=== PATIENT | female | born 1985 | race Caucasian/White ===

== ENCOUNTER 2018-12-23 11:51 | Outpatient (CLI) | payer MEDICAID ==
[~2018-12-23] VITALS: Ht 160 cm; Wt 85.2 kg
[2018-12-23 12:03] VITALS: BP 125/79; Ht 160 cm; Wt 85.2 kg
[2018-12-23] MEDS ORDERED: CEFTRIAXONE 2 GM INJ IM ONE (15:30)
--- NOTE | 2018-12-23 17:48 | PN ---
Triage Information Date/Time Reason for visit: Patient seen in her primary office for visit today, blood pressure was elevated. She referred to triage for further evaluation Weeks of Gestation 38 weeks and 2 days /Para G1 Diabetes: none Hypertention: none Objective Vital Signs Date Temp Pulse Resp B/P (MAP) Pulse Ox O2 O2 Flow FiO2 Time Delivery Rate 12/23/18 98.0 125/79 12:03 (94) Heart Rate: 140's Contractions: None Results/Medications Result Diagram: 12/23/18 1005 12/23/18 1005 Results 24 hrs Laboratory Tests Test 12/23/18 10:05 12/23/18 12:05 White Blood Count 7.3 Red Blood Count 4.57 Hemoglobin 11.3 L Hematocrit 35.4 L Mean Corpuscular Volume 77.5 L Mean Corpuscular Hemoglobin 24.7 L Mean Corpuscular Hemoglobin Concent 31.9 L Red Cell Distribution Width 14.9 H Platelet Count 351 Mean Platelet Volume 10.7 H Immature Granulocytes % 0.500 H Neutrophils % 73.8 Lymphocytes % 17.2 Monocytes % 5.4 Eosinophils % 2.3 Basophils % 0.8 Nucleated Red Blood Cells % 0.0 Immature Granulocytes # 0.040 H Neutrophils # 5.4 Lymphocytes # 1.3 Monocytes # 0.4 Eosinophils # 0.2 Basophils # 0.1 Nucleated Red Blood Cells # 0.0 Prothrombin Time 11.5 L Prothrombin Time Ratio 0.9 INR International Normalized Ratio 0.83 Activated Partial Thromboplast Time 27.3 Fibrinogen 643.0 H Sodium Level 138 Potassium Level 4.5 Chloride Level 110 Carbon Dioxide Level 19 L Anion Gap 9 Blood Urea Nitrogen 6 L Creatinine 0.63 Est Glomerular Filtrat Rate mL/min > 60 Glucose Level 77 Uric Acid 5.5 Calcium Level 8.9 Total Bilirubin 0.3 Direct Bilirubin 0.00 Indirect Bilirubin 0.3 Aspartate Amino Transf (AST/SGOT) 27 Alanine Aminotransferase (ALT/SGPT) 18 Alkaline Phosphatase 323 H Total Protein 7.4 Albumin 3.6 Globulin 3.80 H Albumin/Globulin Ratio 0.94 Urine Color YELLOW Urine Clarity CLOUDY A Urine pH 7.0 Urine Specific [place] 1.008 Urine Ketones NEGATIVE Urine Nitrite NEGATIVE Urine Bilirubin NEGATIVE Urine Urobilinogen NEGATIVE Urine Leukocyte Esterase 3+ H Urine Microscopic RBC 12 H Urine Microscopic WBC 37 H Urine Squamous Epithelial Cells FEW Urine Amorphous Crystals FEW A Urine Bacteria FEW A Urine Hemoglobin 1+ H Urine Glucose NEGATIVE Urine Total Protein NEGATIVE Imaging Results There is a single live intrauterine gestation. Cardiac activity is present with 134 beats per minute. There is a vertex presentation. The placenta is anterior. There is no evidence of placental abruption. There is a normal amount of amniotic fluid with an ROSA = 11.6 cm. Biophysical profile: movement 2/2 tone 2/2. breathing 2/2 ROSA 2/2 Total 05/06 RPTAT: AA . IMPRESSION: Normal biophysical profile. Disposition: Discharge Assessment/Plan 33 years old 1 with single intrauterine at 38 weeks and 2 days with a KADI of 01/04/2019 was seen for visit in her primary OB office, her blood pressure was elevated x1. Patient referred for further evaluation in triage. She states baby has been active. She denies nausea, vomiting, shortnes s of breath, chest pain, abdominal pain, headache, visual changes, vaginal bleeding or LOF. -FHR: No sign of metabolic acidosis- Category I -Contractions: None -All blood pressure in triage were normal -ultrasound performed as noted above -CBC, CMP and uric acid within normal limits -Symptoms and sign of labor, preeclampsia, kick count discussed with patient, she voiced understanding. All of her questions answered. -Patient was discharged home in stable condition with the appropriate discharge instructions provided. I would like patient to have close follow-up with her [facility] physician or outpatient clinic in 1-2 days for checking blood pressure or return to triage for worsening symptoms or any other urgent concerns. 2) UTI: Urinalysis with WBC 27, 2+ leukocyte esterase. 3 cc Rocephin 1 g IM given. Microbead 100 mg every 12 hours for 7days given. Recommend follow-up with her primary OB in 2 days to review urine culture results RONNIE HUSAIN Dec 23, 2018 17:48
== END 2018-12-23 16:25 | disposition home or self-care (01) ==
LOC: OBT 11:51 → L-D 11:51 → OBT 16:25
PROVIDERS: ATTEND Obstetrics & Gynecology
DX: O13.3 Gestational [pregnancy-induced] hypertension without significant proteinuria, third trimester (principal); Z3A.38 38 weeks gestation of pregnancy
CPT/HCPCS: 76818; 80053; 81001; 84560; 85025; 85384; 85610; 85730; 96372; J0696; Z7500; G0463

== ENCOUNTER 2018-12-27 11:23 | Inpatient (IN) | payer MEDICAID ==
[~2018-12-27] VITALS: Ht 160 cm; Wt 85.4 kg
[2018-12-27 11:33] VITALS: Ht 160 cm; Wt 85.4 kg
--- NOTE | 2018-12-27 12:06 | TRIAGE ---
OB Triage Datetime Report Generated by CPN: 12/27/2018 12:06 Datetime: 12/27/2018 11:59 Maternal Assessment Level of Consciousness: Fully Conscious DTR's/Clonus: DTRs 1+ Headache: Denies Blurred Vision: No Nausea/Vomiting: Denies RUQ Epigastric Pain: Denies Facial Edema: None Labor Evaluation Frequency: 5-6 Monitor Mode: External Duration (sec)2399: 50-70 Quality: Mild Pattern: Normal: <= 5 Contractions in 10 Minutes Resting Tone [place]: Relaxed Heart Rate FHR Baseline Rate: 140 Monitor Mode: External US Variability: Moderate 6-25 bpm Accelerations: 15X15 Decelerations: None Category: Category I Pain Assessment Pain Scale: 8 Pain Presence: Intermittent Pain Type: Cramping Pain Location: Back Pain Goal: 3 Membrane Status: Intact Datetime: 12/27/2018 11:55 Stage of : OB Triage Datetime: 12/27/2018 11:30 Assessment Type: Triage Maternal Assessment Level of Consciousness: Fully Conscious DTR's/Clonus: DTRs 2+; No Clonus Headache: Denies Blurred Vision: No Respiratory Effort: Unlabored; Regular Rhythm; Equal Expansion Breath Sounds, Left: Clear and Equal Breath Sounds, Right: Clear and Equal Nausea/Vomiting: Denies RUQ Epigastric Pain: Denies Lower Extremities Edema: None Degree: None Upper Extremities Edema: None Degree: None Facial Edema: None Fall Risk Assessment History of Falling: (0) No Secondary Diagnosis: (0) No Ambulatory Aid: (0) Bedrest/Nurse Assist IV Therapy: (0) No Gait: (0) Normal/Bedrest/Immobile Mental Status: (0) Oriented to Own Ability Fall Score: 0 Fall Risk Score Definition: No Risk: No action required Datetime: 12/27/2018 11:29 Vaginal Exam Dilatation (cms): 1.0 Effacement (%): 90 Station: -2 Exam By: PRABHJOT WRIGHT Vaginal Bleeding: None Cervix, Consistency: Soft Cervix, Position: Midposition Presentation 'A': Cephalic Datetime: 12/27/2018 11:20 Time of Arrival: 12/27/2018 11:20 EGA: 38.6 Arrived By: Ambulatory Arrived From: Home Chief Complaint: PT CAME IN C/O UC'S Movement: Present Contractions: Irregular Time Contractions Began: 12/27/2018 06:30 Contractions: 5-10 MIN Rupture of Membranes: Denies Vaginal Bleeding: None Vaginal Discharge: Denies Recent Sexual Intercouse: Denies Abdominal Trauma: Not Applicable Patient Complaints: Contractions Additional Patient Complaints: NONE Time Provider Notified: 12/27/2018 11:55 Provider Notified: REICHE FOR ESHAGHIAN Initial Plan: MONITOR, VE, BPP Datetime: 12/23/2018 15:51 Stage of : OB Triage Heart Rate FHR Baseline Rate: 135 Monitor Mode: External US Variability: Moderate 6-25 bpm Accelerations: 15X15 Decelerations: None Category: Category I Datetime: 12/23/2018 14:16 Stage of : OB Triage Labor Evaluation Frequency: 0 Monitor Mode: External Pattern: Normal: <= 5 Contractions in 10 Minutes Resting Tone [place]: Relaxed Heart Rate FHR Baseline Rate: 135 Monitor Mode: External US Variability: Moderate 6-25 bpm Accelerations: 15X15 Decelerations: None Category: Category I Datetime: 12/23/2018 13:00 Labor Evaluation Frequency: OCCAS Monitor Mode: External Duration (sec)2399: 50-60 Quality: Mild Pattern: Normal: <= 5 Contractions in 10 Minutes Resting Tone [place]: Relaxed Heart Rate FHR Baseline Rate: 135 Monitor Mode: External US FHR Baseline Changes: No Baseline Change Variability: Moderate 6-25 bpm Accelerations: 15X15 Decelerations: None Category: Category I Datetime: 12/23/2018 12:36 Comments: US AT BEDSIDE Datetime: 12/23/2018 12:07 Stage of : OB Triage Assessment Type: Triage Maternal Assessment Level of Consciousness: Fully Conscious DTR's/Clonus: DTRs 2+; No Clonus Headache: Denies Blurred Vision: No Respiratory Effort: Unlabored; Regular Rhythm; Equal Expansion Breath Sounds, Left: Clear and Equal Breath Sounds, Right: Clear and Equal Nausea/Vomiting: Denies RUQ Epigastric Pain: Denies Lower Extremities Edema: None Degree: None Upper Extremities Edema: None Degree: None Facial Edema: None Temperature Route: Oral Fall Risk Assessment History of Falling: (0) No Secondary Diagnosis: (0) No Ambulatory Aid: (0) Bedrest/Nurse Assist IV Therapy: (0) No Gait: (0) Normal/Bedrest/Immobile Mental Status: (0) Oriented to Own Ability Fall Score: 0 Fall Risk Score Definition: No Risk: No action required Monitor Mode: External Monitor Mode: External US Pain Assessment Pain Scale: 0 Pain Presence: None/Denies Datetime: 12/23/2018 12:06 Time of Arrival: 08/25/2019 11:49 EGA: 73.2 Arrived By: Ambulatory Arrived From: Dr. Estrada Chief Complaint: SENT FROM [facility] FOR ELEVATED B/P Movement: Present Contractions: Denies/Absent Rupture of Membranes: Denies Vaginal Bleeding: None Vaginal Discharge: Denies Recent Sexual Intercouse: Denies Abdominal Trauma: Not Applicable Patient Complaints: Other Time Provider Notified: 12/23/2018 14:02 Provider Notified: WENDY
[2018-12-27] MEDS ORDERED: LACTATED RINGER'S 1,000 ML IV PRN (12:25)
[2018-12-27] MEDS ORDERED: CARBOPROST 250 MCG INJ IM PRN (12:30)
[2018-12-27] MEDS ORDERED: OXYTOCIN 30 UNITS/LR 500 ML IV SCH ×3 (12:30→18:30)
[2018-12-27] MEDS ORDERED: MISOPROSTOL 200 MCG TAB PR PRN (12:30)
[2018-12-27] MEDS ORDERED: OXYTOCIN 30 UNITS/LR 500 ML IV PRN (12:30)
[2018-12-27] MEDS ORDERED: LIDOCAINE 1% (MPF) 30 ML INJ INJ PRN (12:30)
[2018-12-27] MEDS ORDERED: METHYLERGONOVINE 0.2 MG INJ IM PRN (12:30)
[2018-12-27] MEDS: LACTATED RINGER'S 1,000 ML IV SCH ×2 (12:33→20:43)
[2018-12-28] VITALS (8 sets, daily range): BP systolic 115–149; BP diastolic 56–91; PULSE 87–116; RESP 18
--- NOTE | 2018-12-28 00:40 | PREAC ---
Date/Time of Note Date/Time of Note DATE: 12/28/18 TIME: 00:39 Anesthesia Eval and Record Evaluation Time Pre-Procedure Interview DATE: 12/28/18 TIME: 00:39 Age 33 Sex female NPO: 8 hrs Preoperative diagnosis Planned procedure labor epidural Past Medical History Past Medical History: None Surgery & Anesthesia Issues No known issue Meds Anticoagulation: No Beta Neelima within 24 hr: No Reason Beta Neelima not given: Pt. not on B-Neelima No Active Prescriptions or Reported Meds Current Medications Lactated Ringer's 1,000 ml @ 125 mls/hr Q8H IV Last administered on 12/27/18at 20:43; Admin Dose 125 MLS/HR; Start 12/27/18 at 12:25 Lidocaine (Xylocaine 1% (Mpf)) 30 ml ONCE PRN INJ .EPISIOTOMY; Start 12/27/18 at 12:30 Oxytocin/Lactated Ringer's 500 ml @ 500 mls/hr ONCE POST IV ; Start 12/27/18 at 12:30 Oxytocin/Lactated Ringer's 500 ml @ 125 mls/hr POST IV ; Start 12/27/18 at 12:30 Lactated Ringer's 1,000 ml @ 2,000 mls/hr Q30M PRN IV .ANESTHESIA Last administered on 12/28/18at 00:29; Admin Dose 2,000 MLS/HR; Start 12/27/18 at 12:25 Oxytocin/Lactated Ringer's 500 ml @ 0 mls/hr ONCE PRN IV .VAGINAL BLEEDING; Start 12/27/18 at 12:30 Methylergonovine Maleate (Methergine) 0.2 mg ONCE PRN IM .VAGINAL BLEEDING; Start 12/27/18 at 12:30 Carboprost Tromethamine (Hemabate) 250 mcg ONCE PRN IM .VAGINAL BLEEDING; Start 12/27/18 at 12:30 Misoprostol (Cytotec) 1,000 mcg ONCE PRN MI .VAGINAL BLEEDING; Start 12/27/18 at 12:30 Oxytocin/Lactated Ringer's 500 ml @ 0 mls/hr Q0M IV Last administered on 12/27/18at 18:20; Admin Dose 1 MLS/HR; Start 12/27/18 at 18:30 Meds reviewed: Yes Allergies Coded Allergies: No Known Allergies (Verified Allergy, Unknown, 12/27/18) Allergies Reviewed: Yes Labs/Studies Labs Reviewed: Reviewed by anesthesiologist Result Diagram: 12/27/18 1225 Laboratory Tests 12/27/18 12:25 Blood Bank Test 12/27/18 12:25 Antibody Screen NEGATIVE Blood Type O POSITIVE Rh Immune Globulin Candidate NO test: Positive Pre-procedure Exam Airway: Adequate mouth opening, Adequate thyromental dist Mallampati: Mallampati II Teeth: Normal Lung: Normal Heart: Normal ASA Physical Status ASA physical status: 2 Emergency: None Planned Anesthetic Neuraxial: Epidural Pre-operative Attestations Prior to commencing anesthesia and surgery, the patient was re-evaluated, there was verification of: *The patient's identity *The results of appropriate recent lab work and preoperative vital signs *The above evaluation not changing prior to induction *Anesthetic plan, risk benefits, alternative and complications discussed with patient/family; questions answered; patient/family understands, accepts and wishes to proceed. GERALD WIGGINS Dec 28, 2018 00:40
[2018-12-28] MEDS ORDERED: FENTAnyl 2MCG/ML-ROPIV 0.2% 100 ML ONE (00:59)
[2018-12-28] MEDS ORDERED: DIPHENHYDRAMINE 50 MG INJ IV PRN (01:00)
[2018-12-28] MEDS ORDERED: ROPIVACAINE 0.2% 100 ML ONE (01:00)
[2018-12-28] MEDS ORDERED: HYDROmorphONE 0.5 MG/0.5 ML SYG IV PRN ×2 (01:00)
[2018-12-28] MEDS ORDERED: KETOROLAC 30 MG INJ IV PRN (01:00)
[2018-12-28] MEDS ORDERED: ONDANSETRON 4 MG INJ IV PRN ×2 (01:00→22:00)
[2018-12-28] MEDS ORDERED: NALOXONE (0.4 MG/ML) INJ IV PRN (01:00)
--- NOTE | 2018-12-28 01:09 | PAC ---
Date/Time of Note Date/Time of Note DATE: 12/28/18 TIME: 01:09 Post-Anesthesia Notes Post-Anesthesia Note Activity: WNL Respiratory function: WNL Cardiovascular function: WNL Mental status: Baseline Pain reasonably controlled: Yes Hydration appropriate: Yes Nausea/Vomiting absent: Yes GERALD WIGGINS Dec 28, 2018 01:09
[2018-12-28] MEDS: LACTATED RINGER'S 1,000 ML IV SCH ×2 (01:37→09:42)
[2018-12-28] MEDS: FENTAnyl 2MCG/ML-ROPIV 0.2% 100 ML BAG EPI SCH ×2 (11:10→20:03)
--- NOTE | 2018-12-28 12:29 | QN ---
Documentation Comment patient seen and evaluated no complaints vs stable afebrile ab gravid nt extremity no edema nt ve deffered fhr cat 1 toco regular a/ iup at term in labor p/ anticipate vaginal delivery JOSHUA CAMACHO MD Dec 28, 2018 12:29
--- NOTE | 2018-12-28 12:29 | QN ---
Documentation Comment patient seen and evaluated no complaints vs stable afebrile ab gravid nt extremity no edema nt ve 5/80/-2 srom fhr cat 1 toco regular a/ iup at term in labor p/ anticipate vaginal delivery JOSHUA CAMACHO MD Dec 28, 2018 12:29
[2018-12-28] MEDS ORDERED: SODIUM CHLORIDE 0.9% 1L IRRIG IRR PRN (12:30)
[2018-12-28] MEDS ORDERED: DEXTROSE 5%-LR 1,000 ML IV PRN (12:30)
--- NOTE | 2018-12-28 12:30 | QN ---
Documentation Comment patient seen and evaluated no complaints vs stable afebrile ab gravid nt extremity no edema nt ve 2-3/70/-3 intact fhr cat 1 toco regular a/ iup at term in labor currently on Pitocin for augmentation p/ anticipate vaginal delivery JOSHUA CAMACHO MD Dec 28, 2018 12:30
[2018-12-28] MEDS ORDERED: SOD CHLORIDE 0.9% 1,000 ML IV PRN (16:00)
[2018-12-28] MEDS ORDERED: AMPICILLIN 2 GM/NS (PMX) 100 ML ONE (20:16)
[2018-12-28] MEDS ORDERED: AMPICILLIN 2 GM/NS (PMX) 100 ML IVPB ONE (20:30)
[2018-12-28] MEDS: ACETAMINOPHEN 325 MG TAB PO PRN (20:42)
[2018-12-28] MEDS ORDERED: OXYTOCIN 30 UNITS/LR 500 ML IV SCH (21:31)
--- NOTE | 2018-12-28 21:31 | LDN ---
Date/Time of Note Date/Time of Note DATE: 12/28/18 TIME: 21:29 Delivery Summary Weeks of Gestation 38 Placenta Delivered: Spontaneously Meconium: none Episiotomy: No Perineal laceration: 1 Laceration repair: 1st degree vaginal and perineal lacertion repair with 2-0 and 3-0 chromic Anesthesia type: Epidural Estimated blood loss: 350 Sponge & Needle done & correct: Yes All needle counts correct: Yes Any foreign bodies felt in the: No Infant Delivery Information Sex Sex: female Apgars 1 Minute: 7 5 Minute: 9 Suctioning Nose & mouth suctioned at [place]elope: No Delee suction performed: No Umbilical Cord Umbilical cord with: 3 Vessels Cord presentations: nuchal cord Nuchal cord present X: 1 Cord Blood was obtained: Yes JOSHUA CAMACHO MD Dec 28, 2018 21:31
[2018-12-28] MEDS ORDERED: OXYTOCIN 30 UNITS/LR 500 ML IV PRN (22:00)
[2018-12-28] MEDS ORDERED: NACL 0.9% 3 ML SYG IV SCH (22:00)
[2018-12-28] MEDS ORDERED: ACETAMINOPHEN 325 MG TAB PO PRN (22:00)
[2018-12-28] MEDS ORDERED: MISOPROSTOL 200 MCG TAB PR PRN (22:00)
[2018-12-28] MEDS ORDERED: BENZOCAINE 20% 56 ML SPRAY TOP PRN (22:00)
[2018-12-28] MEDS ORDERED: CARBOPROST 250 MCG INJ IM PRN (22:00)
[2018-12-28] MEDS ORDERED: DIBUCAINE 1% 30 GM OINT TOP PRN (22:00)
[2018-12-28] MEDS ORDERED: WITCH HAZEL/GLYCERIN PAD PR PRN (22:00)
[2018-12-28] MEDS ORDERED: SENNA/DOCUSATE NA (8.6MG/50MG) TAB PO PRN (22:00)
[2018-12-28] MEDS ORDERED: METHYLERGONOVINE 0.2 MG INJ IM PRN (22:00)
[2018-12-28] MEDS ORDERED: LANOLIN HPA 1 PKT TOP PRN (22:00)
[2018-12-28] MEDS ORDERED: OXYCODONE/ASPIRIN (4.88/325) TAB PO PRN ×2 (22:00)
[2018-12-29] MEDS: ACETAMINOPHEN 325 MG TAB PO PRN (00:21)
[2018-12-29 02:00] VITALS: BP 118/58; PULSE 74; RESP 20
[2018-12-29] MEDS: IBUPROFEN 600 MG TAB PO SCH ×5 (02:15→23:37)
[2018-12-29] MEDS ORDERED: MISOPROSTOL 200 MCG TAB PR PRN (02:30)
[2018-12-29] MEDS ORDERED: OXYTOCIN 30 UNITS/LR 500 ML IV PRN (02:30)
[2018-12-29] MEDS ORDERED: CARBOPROST 250 MCG INJ IM PRN (02:30)
[2018-12-29] MEDS ORDERED: OXYTOCIN 30 UNITS/LR 500 ML IV SCH ×2 (02:30)
[2018-12-29] MEDS ORDERED: LIDOCAINE 1% (MPF) 30 ML INJ INJ PRN (02:30)
[2018-12-29] MEDS ORDERED: METHYLERGONOVINE 0.2 MG INJ IM PRN (02:30)
[2018-12-29 04:00] VITALS: BP 105/68; PULSE 72; RESP 18
[2018-12-29 08:25] VITALS: BP 102/63; PULSE 69; RESP 18
[2018-12-29] MEDS: SENNA/DOCUSATE NA (8.6MG/50MG) TAB PO SCH ×2 (12:05→21:13)
[2018-12-29 16:00] VITALS: BP 104/57; PULSE 66; RESP 18
[2018-12-29 19:40] VITALS: BP 107/62; PULSE 67; RESP 19
--- NOTE | 2018-12-29 19:40 | PD.PPDC ---
[employer] HAND Discharge Instruction Condition [id number] Patient Condition: Gedsw3e Good Diet [id number] Diet: Soulw7d Resume Regular Diet Activity/Restrictions [id number] Activity: Uchzy3n Normal Activity May Shower Lfdep9Vm Restrictions: Njshm1w No Exercising No Lifting No Driving No Sexual Activity Nothing in the Vagina No [place] No Tampons, douche Follow-up Follow-up with Physician: 3, Week/Weeks Return to clinic for Cafoj5Eq SOCIOLOGY INSTRUCTOR Instructions: Kptdk4h Fever greater than 101 Chills Worsening abdominal pain Excessive Vaginal Bleeding More than 2 pads per hour Unable to tolerate diet Naroe1Lm OB Instructions: Bdfcx8u Breast Tenderness Depression Blurried Vision Headache [id number] Surgical Instructions: [id number] Incisional Drainage Incisional Redness JOSHUA CAMACHO MD Dec 29, 2018 19:40
--- NOTE | 2018-12-29 19:42 | DS ---
Date/Time of Note Date/Time of Note DATE: 12/29/18 TIME: 19:41 Obstetrical Discharge Record Final Diagnosis Final Diagnosis: Term delivered Vaginal Delivery Obstetrical Delivery: Spontaneous, Laceration, Repaired Condition on Discharge Physical Assessment Last Vitals: stable afebrile Voiding: Yes Bowel Movement: Yes Breast: Soft, non-tender, Filling Fundus: Firm Abdomen and Incision: soft nt Calf Tenderness: No Patient Condition: Fair JOSHUA CAMACHO MD Dec 29, 2018 19:42
[2018-12-29] MEDS: LACTATED RINGER'S 1,000 ML IV SCH ×4 (20:25→20:56)
[2018-12-30] MEDS: LACTATED RINGER'S 1,000 ML IV SCH ×2 (02:25→03:06)
[2018-12-30 03:40] VITALS: BP 105/59; PULSE 69; RESP 18
[2018-12-30] MEDS: IBUPROFEN 600 MG TAB PO SCH ×2 (05:45→12:27)
--- NOTE | 2018-12-30 07:50 | PREOPHP ---
DATE OF ADMISSION: 12/27/2018 HISTORY OF PRESENT ILLNESS: The patient is a 33-year-old 1, para 0, EDC 01/04/2019 intrauter ine at 39 weeks gestational age, admitted for in labor. She denies any vaginal bleeding or discharge. Her care took place at [facility]. PAST MEDICAL HISTORY: None. MEDICATIONS: vitamins. PAST SURGICAL HISTORY: None. OBSTETRIC HISTORY: Primigravida. GYNECOLOGIC HISTORY: 12, regular 3 to 4 days. She denies any sexually transmitted disease. Sexuall y active with 1 partner. SOCIAL HISTORY: She denies any smoking, drugs or alcohol. FAMILY HISTORY: None. REVIEW OF SYSTEMS: All within normal except history of present illness. PHYSICAL EXAMINATION: HEENT: Within normal. LUNGS: CTA bilateral. CARDIOVASCULAR: S1, S2, regular rate, regular rhythm. ABDOMEN: Gravid, nontender. Negative CVA bilateral. EXTREMITIES: Negative for calf tenderness. PELVIC: heart tracing category 1, toco; regular contractions. ASSESSMENT: Intrauterine at term in labor. PLAN: Anticipated vaginal delivery. Dictated By: JOSHUA GAMA/DEBBIE Conf#: [id number] DID#: [id number] CC: JOSHUA CAMACHO MD;*EndCC*
[2018-12-30 08:30] VITALS: BP 103/64; PULSE 59; RESP 16
[2018-12-30] MEDS: SENNA/DOCUSATE NA (8.6MG/50MG) TAB PO SCH (09:37)
--- NOTE | 2018-12-31 13:34 | DELSUM ---
Delivery Summary A-C Datetime Report Generated by CPN: 12/31/2018 13:34 DELIVERY PERSONNEL Instrument Room Technician: Fistell, Tom MATERNAL INFORMATION Delivery Anesthesia: Epidural Medications in Delivery: PITOCIN 30 UNITS IN 500 ML L/R INJ IV BOLUS AFTER DELIVERY Delivery QBL (ml): 350 Placenta Cultured: No Maternal Complications: Maternal Fever; Prolong Labor >20Hrs LABOR SUMMARY EDC: 01/04/2019 00:00 No. Babies in Womb: 1 Attempted: No Labor Anesthesia: Epidural LABOR INFORMATION Reason for Induction: Not Applicable Onset of Labor: 12/25/2018 21:00 Complete Dilatation: 12/28/2018 19:15 Cervical Ripening Agents: Cytotec @ Oxytocin: Augmentation Group B Beta Strep: Negative Antibiotics # of Doses: AMPICILLIN 2 GM IV Antibiotics Time of Last Dose: 12/28/2018 20:40 Steroids Given: None Reason Steroids Not Administered: Not Applicable MEMBRANES Membranes Rupture Method: Spontaneous Rupture of Membranes: 12/28/2018 11:46 Length of Rupture (hr): 9.30 Amniotic Fluid Color: Clear Amniotic Fluid Amount: Moderate Amniotic Fluid Odor: None STAGES OF LABOR Stage 1 hr: 70 Stage 1 min: 15 Stage 2 hr: 1 Stage 2 min: 49 Stage 3 hr: 0 Stage 3 min: 4 Total Time in Labor hr: 72 Total Time in Labor min: 8 VAGINAL DELIVERY Episiotomy: None Laceration Extension: First Degree Laceration Type: Perineal; Vaginal Laceration Repair: Yes Initial Vag Sponge Count: 10 Final Vag Sponge Count: 10 Initial Vag Sharps Count: 1 Final Vag Sharps Count: 4 Sponge Count Correct: Yes Sharps Count Correct: Yes BABY A INFORMATION Infant Delivery Date/Time: 12/28/2018 21:04 Method of Delivery: Vaginal Born in Route : No : N/A Forceps: N/A Vacuum Extraction: N/A Shoulder Dystocia : N/A SHOULDER DYSTOCIA BABY A Delivery Date/Time: 12/28/2018 21:04 PRESENTATION/POSITION BABY A Presentation: Cephalic Cephalic Presentation: Vertex Vertex Position: Left Occipital Anterior Breech Presentation: N/A PLACENTA INFORMATION BABY A Placenta Delivery Time : 12/28/2018 21:08 Placenta Method of Delivery: Spontaneous Placenta Status: Delivered SCORES BABY A Heart Rate 1 min: >100 bpm Resp Effort 1 min: Slow, Irregular Reflex Irritability 1 min: Cough/Sneeze/Pulls Away Muscle Tone 1 min: Active Motion Color 1 min: Blue/Pale Resuscitation Effort 1 min: Tactile Stimulation; Oxygen SCORE 1 MIN: 7 Heart Rate 5 min: >100 bpm Resp Effort 5 min: Good Cry Reflex Irritability 5 min: Cough/Sneeze/Pulls Away Muscle Tone 5 min: Active Motion Color 5 min: Body [place], Extremit Blue Resuscitation Effort 5 min: N/A SCORE 5 MIN: 9 INFORMATION BABY A Gestational Age at Delivery: 39.0 Gestational Status: Full Term- 39- 40.6 Weeks Infant Outcome : Liveborn Infant Condition : Stable Sex: Female IDENTIFICATION/MEDS BABY A ID Band Number: [id number] ID Band Location: Right Arm; Left Leg Sensor Applied: Yes Sensor Number: [id number] Sensor Location : Cord Clamp Vitamin K Given : Not Given Erythromycin Given: Not Given WEIGHT/LENGTH BABY A Birthweight (gm): 3535 Weight (lb): 7 Weight (oz): 13 Infant Length (in): 21.00 Infant Length (cm): 53.34 CORD INFORMATION BABY A No. Cord Vessels: 3 Nuchal Cord : N/A Cord Blood Taken: Yes Infant Suction: Mouth; Nose ASSESSMENT BABY A Infant Complications: Decreased Variability; Multiple Variable Decels Physical Findings at Delivery: Within Normal Limits Infant Respirations: Appears Normal Sander Portable Machine/ALS Called : Yes Infant Care By: Tiana OSMAN RT Transferred To: Remains with Mother
== END 2018-12-30 13:30 | disposition home or self-care (01) | DRG 807 ==
LOC: OBT 11:23 → L-D 11:25 → OBT 11:51 → L-D 11:51 → PP1 12-29 01:46
PROVIDERS: ADMIT Obstetrics & Gynecology; ATTEND Obstetrics & Gynecology
PROC: 10E0XZZ Delivery of Products of Conception, External Approach (ICD-10-PCS; principal; 2018-12-28)
PROC: 0HQ9XZZ Repair Perineum Skin, External Approach (ICD-10-PCS; 2018-12-28)
DX: O69.81X0 Labor and delivery complicated by cord around neck, without compression, not applicable or unspecified (principal); Z37.0 Single live birth; O70.0 First degree perineal laceration during delivery; Z3A.38 38 weeks gestation of pregnancy
CPT/HCPCS: 85014; 85018; 85025; 85610; 85730; 86592; 86850; 86900; 86901; 99464; G0463; J0290; J2210; J2590; J2795; J3010; J7120